=== PATIENT | female | born 1970 | race African-American/Black ===

== ENCOUNTER 2021-08-19 09:07 | Observation (INO) ==
[2021-08-19] MEDS ORDERED: amLODIPine 5 MG TABLET PO STA (09:35)
[2021-08-19] MEDS ORDERED: hydrALAZINE 20 MG/1 ML VIAL IV STA (09:35)
[2021-08-19 09:49] LABS: Basophils % 0.4 % (0.0-0.8); Eosinophils % 0.7 % (0.00-10.9); Hematocrit 41.7 VOL% (35.7-47.0); Hemoglobin 13.4 GM/DL (12.0-16.0); Immature Granulocytes % 0.4 %; Immature Granulocytes Absolute 0.02 #; Lymphocytes # 1.5 10*3/uL (1.4-4.0); Lymphocytes % 26.6 % (21.3-54.2); Mean Corpuscular HGB Conc 32.1 GM/DL (32-36); Mean Corpuscular Volume 82.6 FL (87-102); Mean Platelet Volume 8.6 FL (9.6-12.0); Monocytes % 8.8 % (1.7-12.7); Neutrophils % 63.1 % (38.7-73.9); Platelet Count 334 T/CUMM (130-400); Red Blood Count 5.05 MC/CUMM (3.8-5.5); Red Cell Distribution Width 14.5 % (9.3-17.3); White Blood Count 5.7 T/CUMM (4-12)
[2021-08-19 10:23] LABS: Albumin 3.8 G/DL (3.4-5.0); Bilirubin,Total 0.5 MG/DL (0.20-1.00); Calcium 9.4 MG/DL (8.5-10.1); Osmolality,Calculated 277.4 MOS/KG (273-304); Potassium 3.8 MMOL/L (3.5-5.1); Total Protein 8.1 G/DL (6.4-8.2)
[2021-08-19 11:35] LABS: Mucus,Urine Occasional /LPF (Occasional); RBC,Urine 2 /HPF (0-4); Squamous Epithelial Cell,Urine Occasional /HPF (0-10); Urine Appearance Clear (Clear); Urine Color Light Yellow (Yellow)
[2021-08-19 11:36] LABS: Bilirubin,Urine Negative (Negative); Blood, Urine Trace mg/dL (Negative); Glucose,Urine (UA) Negative (Negative); Ketones,Urine 15 mg/dL (Negative); Nitrite,Urine Negative (Negative); Protein,Urine Negative; Urine Specific Gravity 1.015 (1.001-1.035); Urine pH 5.5 (4.5-8.0)
[2021-08-19 12:00] LABS: Barbiturates Screen,Urine Negative (Negative); Benzodiazepines Screen,Urine Negative (Negative); Cannabinoid Screen,Urine Positive (Negative); Opiate Screen,Urine Negative (Negative); Phencyclidine Screen,Urine Negative (Negative)
[2021-08-19] MEDS ORDERED: GLUCAGON 1 MG VIAL IM PRN (13:01)
[2021-08-19] MEDS ORDERED: ACETAMINOPHEN 325 MG TABLET PO PRN (13:01)
[2021-08-19] MEDS ORDERED: hydrALAZINE 20 MG/1 ML VIAL IV PRN (13:01)
[2021-08-19] MEDS ORDERED: ONDANSETRON 4 MG/2 ML VIAL IV PRN (13:01)
[2021-08-19] MEDS ORDERED: DEXTROSE 10% 25 GM/250 ML BAG IV PRN (13:01)
[2021-08-19] MEDS ORDERED: DOCUSATE SODIUM 100 MG CAPSULE PO PRN (13:01)
[2021-08-19] MEDS ORDERED: ENOXAPARIN 40 MG/0.4 ML SYRINGE SUBCUT SCH (13:30)
[2021-08-19] MEDS ORDERED: DEXTROSE 10% 250 ML BAG IV PRN (13:37)
[2021-08-19 13:39] LABS: Risk Ratio 2.82; Thyroid Stimulating Hormone 0.509 uIU/ml (0.358-3.74)
[2021-08-19] MEDS: INSULIN LISPRO 100 UNIT/ML SUBCUT SCH ×2 (17:41→20:28)
[2021-08-20 06:46] LABS: Basophils % 0.8 % (0.0-0.8); Eosinophils # 0.1 10*3/uL (0.0-0.87); Eosinophils % 1.6 % (0.00-10.9); Hematocrit 40.5 VOL% (35.7-47.0); Hemoglobin 13.5 GM/DL (12.0-16.0); Immature Granulocytes % 0.3 %; Immature Granulocytes Absolute 0.01 #; Lymphocytes # 1.6 10*3/uL (1.4-4.0); Lymphocytes % 43.2 % (21.3-54.2); Mean Corpuscular HGB Conc 33.3 GM/DL (32-36); Mean Corpuscular Volume 82.5 FL (87-102); Mean Platelet Volume 9.2 FL (9.6-12.0); Monocytes % 10.8 % (1.7-12.7); Neutrophils % 43.3 % (38.7-73.9); Platelet Count 339 T/CUMM (130-400); Red Blood Count 4.91 MC/CUMM (3.8-5.5); Red Cell Distribution Width 14.2 % (9.3-17.3); White Blood Count 3.7 T/CUMM (4-12)
[2021-08-20 06:58] LABS: Calcium 9.3 MG/DL (8.5-10.1); Osmolality,Calculated 266.1 MOS/KG (273-304); Potassium 3.4 MMOL/L (3.5-5.1)
[2021-08-20 08:02] VITALS: BP 136/91
[2021-08-20] MEDS: INSULIN LISPRO 100 UNIT/ML SUBCUT SCH (08:41)
[2021-08-20] MEDS ORDERED: amLODIPine 10 MG TABLET PO SCH (09:00)
[2021-08-20] MEDS ORDERED: ASPIRIN CHEW 81 MG TABLET PO SCH (09:00)
[2021-08-20] MEDS ORDERED: predniSONE 20 MG TABLET PO ONE (11:00)
[2021-08-21] MEDS ORDERED: MELOXICAM 7.5 MG TABLET PO SCH (11:00)
== END 2021-08-20 11:15 | disposition home or self-care (01) ==
LOC: N.EDINP 09:07 → N.ED 09:07 → SUATTDRO 11:47 → N.5E 16:33
PROVIDERS: ADMIT Hospitalist; ATTEND Emergency Medicine